=== PATIENT | male | born 1965 | race American Indian/Alaskan Native ===

== ENCOUNTER 2021-02-21 | Emergency (ER) | payer MEDICAID ==
--- NOTE | 2021-02-21 00:26 | Emergency Department Report ---
HPI <KIM SINCLAIR - Last Filed: 02/21/21 12:58> - HPI HPI: This is a 55-year-old -[place] male presents to the emergency department with complaint of left hip pain. Patient says that he was walking towards his truck at home, earlier in the evening, and "my hip gave out." Patient had a fall because of this, but says that he was able to get up and he got into his truck. He began to have increased pain and spent about 2 hours in his truck not knowing what to do. He says that his phone had and therefore he was unable to call for an ambulance. Eventually he decided to drive himself to the emergency department. Once he got here he attempted to get him through the outpatient doors, which are closed for the evening. Due to his hip pain he was unable to go any further and was found by security laying down by the outpatient doors. We were able to get a gurney and transfer the patient into the emergency department. He is awake, alert, oriented. He has a past medical history of hypertension, previous LA, and has a history of left hip replacement surgery. He says that the hardware in the left hip is "coming apart" and he is due to have surgery next month through [facility]. <STANLEY ARTHUR S - Last Filed: 02/21/21 21:06> - General Time Seen by Provider: 02/21/21 00:20 ED Past Medical Hx <KIM SINCLAIR C - Last Filed: 02/21/21 12:58> <STANLEY ARTHUR S - Last Filed: 02/21/21 21:06> - Medications Home Medications: Home Medications Medication Instructions Recorded Confirmed Last Taken Type HYDROcodone/APAP 5-325 [Mohall 1 each PO Q6HR PRN #10 tablet 02/21/21 Unknown Rx 5/325] ED Review of Systems ROS: Stated complaint: LEFT HIP PAIN Other details as noted in HPI <KIM SINCLAIR - Last Filed: 02/21/21 12:58> ROS: Stated complaint: LEFT HIP PAIN Other details as noted in HPI Comment: All other systems reviewed and negative Constitutional: denies: chills, fever Eyes: denies: eye pain, vision change ENT: denies: ear pain, throat pain Respiratory: denies: cough, shortness of breath Cardiovascular: denies: chest pain, palpitations Gastrointestinal: denies: abdominal pain, vomiting Genitourinary: denies: dysuria, discharge Musculoskeletal: arthralgia. denies: back pain Skin: denies: rash, lesions Neurological: denies: headache, weakness, numbness, paresthesias <STANLEY ARTHUR S - Last Filed: 02/21/21 21:06> Physical Exam - Physical Exam Vital Signs: Vital Signs 02/21/21 02/21/21 02/21/21 00:44 00:58 01:00 Temperature Pulse Rate 93 H 85 86 Respiratory 14 22 Rate Blood Pressure Blood Pressure [Left] O2 Sat by Pulse 95 93 Oximetry 02/21/21 02/21/21 02/21/21 01:14 01:15 01:30 Temperature Pulse Rate 85 82 Respiratory 18 22 19 Rate Blood Pressure 149/74 Blood Pressure [Left] O2 Sat by Pulse 94 90 Oximetry 02/21/21 02/21/21 02/21/21 01:34 01:44 01:45 Temperature 97.9 F Pulse Rate 92 H 80 Respiratory 20 18 20 Rate Blood Pressure 155/68 Blood Pressure 149/74 [Left] O2 Sat by Pulse 96 Oximetry 02/21/21 02/21/21 02/21/21 02:01 02:15 02:31 Temperature Pulse Rate 79 82 84 Respiratory 18 18 16 Rate Blood Pressure 135/80 151/83 129/79 Blood Pressure [Left] O2 Sat by Pulse Oximetry 02/21/21 02/21/21 02/21/21 02:45 03:01 03:15 Temperature Pulse Rate 82 83 83 Respiratory 21 19 19 Rate Blood Pressure 135/82 152/81 145/72 Blood Pressure [Left] O2 Sat by Pulse 92 91 Oximetry 02/21/21 02/21/21 02/21/21 03:31 03:45 04:01 Temperature Pulse Rate 82 86 84 Respiratory 18 17 16 Rate Blood Pressure 144/76 151/88 159/97 Blood Pressure [Left] O2 Sat by Pulse 93 87 92 Oximetry 02/21/21 02/21/21 02/21/21 04:15 04:31 04:45 Temperature Pulse Rate 84 88 86 Respiratory 17 17 16 Rate Blood Pressure 167/92 148/82 143/73 Blood Pressure [Left] O2 Sat by Pulse 91 91 Oximetry 02/21/21 02/21/21 02/21/21 05:01 05:15 05:31 Temperature Pulse Rate 85 90 83 Respiratory 18 16 17 Rate Blood Pressure 148/82 132/79 138/90 Blood Pressure [Left] O2 Sat by Pulse 94 95 94 Oximetry 02/21/21 02/21/21 05:45 06:01 Temperature Pulse Rate 86 83 Respiratory 16 18 Rate Blood Pressure 134/83 152/96 Blood Pressure [Left] O2 Sat by Pulse 93 93 Oximetry <KIM SINCLAIR - Last Filed: 02/21/21 12:58> - Physical Exam Physical Exam: GENERAL: The patient is well-developed well-nourished. HENT: Normocephalic. Atraumatic. Patient has moist mucous membranes. EYES: Extraocular motions are intact. NECK: Supple. Trachea is midline. CHEST/LUNGS: Clear to auscultation. There is no respiratory distress noted. HEART/CARDIOVASCULAR: Regular. There is no tachycardia. There is no murmur. ABDOMEN: Abdomen is soft, nontender. Patient has normal bowel sounds. Obese habitus. SKIN: Skin is warm and dry. NEURO: The patient is awake, alert, and oriented. The patient is cooperative. The patient has no focal neurologic deficits. Normal speech. MUSCULOSKELETAL: There is tenderness to palpation to the left hip. <STANLEY ARTHUR S - Last Filed: 02/21/21 21:06> ED Course Vital Signs 02/21/21 02/21/21 02/21/21 00:44 00:58 01:00 Temperature Pulse Rate 93 H 85 86 Respiratory 14 22 Rate Blood Pressure Blood Pressure [Left] O2 Sat by Pulse 95 93 Oximetry 02/21/21 02/21/21 02/21/21 01:14 01:15 01:30 Temperature Pulse Rate 85 82 Respiratory 18 22 19 Rate Blood Pressure 149/74 Blood Pressure [Left] O2 Sat by Pulse 94 90 Oximetry 02/21/21 02/21/21 02/21/21 01:34 01:44 01:45 Temperature 97.9 F Pulse Rate 92 H 80 Respiratory 20 18 20 Rate Blood Pressure 155/68 Blood Pressure 149/74 [Left] O2 Sat by Pulse 96 Oximetry 02/21/21 02/21/21 02/21/21 02:01 02:15 02:31 Temperature Pulse Rate 79 82 84 Respiratory 18 18 16 Rate Blood Pressure 135/80 151/83 129/79 Blood Pressure [Left] O2 Sat by Pulse Oximetry 02/21/21 02/21/21 02/21/21 02:45 03:01 03:15 Temperature Pulse Rate 82 83 83 Respiratory 21 19 19 Rate Blood Pressure 135/82 152/81 145/72 Blood Pressure [Left] O2 Sat by Pulse 92 91 Oximetry 02/21/21 02/21/21 02/21/21 03:31 03:45 04:01 Temperature Pulse Rate 82 86 84 Respiratory 18 17 16 Rate Blood Pressure 144/76 151/88 159/97 Blood Pressure [Left] O2 Sat by Pulse 93 87 92 Oximetry 02/21/21 02/21/21 02/21/21 04:15 04:31 04:45 Temperature Pulse Rate 84 88 86 Respiratory 17 17 16 Rate Blood Pressure 167/92 148/82 143/73 Blood Pressure [Left] O2 Sat by Pulse 91 91 Oximetry 02/21/21 02/21/21 02/21/21 05:01 05:15 05:31 Temperature Pulse Rate 85 90 83 Respiratory 18 16 17 Rate Blood Pressure 148/82 132/79 138/90 Blood Pressure [Left] O2 Sat by Pulse 94 95 94 Oximetry 02/21/21 02/21/21 05:45 06:01 Temperature Pulse Rate 86 83 Respiratory 16 18 Rate Blood Pressure 134/83 152/96 Blood Pressure [Left] O2 Sat by Pulse 93 93 Oximetry - Reevaluation(s) Reevaluation #1: 02/21/21 12:58 Patient now alert after sleeping in the ED for several hours. Last dose of pain medication and sedatives around 1 AM. Patient will be discharged to drive home <KIM SINCLAIR - Last Filed: 02/21/21 12:58> ED Medical Decision Making - Lab Data Result diagrams: 02/21/21 00:44 02/21/21 00:44 <KIM SINCLAIR - Last Filed: 02/21/21 12:58> - Lab Data Result diagrams: 02/21/21 00:44 02/21/21 00:44 - Radiology Data Radiology results: image reviewed interpreted by me: X-ray of the left hip shows a prosthetic in place without any acute fracture, dislocation, or any acute process. - Medical Decision Making This patient presents to the emergency department with left hip pain that "locked up" a few hours prior to presentation causing him to have a fall. He later drove himself in to be seen but could not quite make it into the emergency department secondary to the pain and what appears to be spasms. On examination there is reproducible tenderness to palpation. The patient also does appear to be having intermittent spasms of pain to that left hip. X-ray of the left hip does not show any fracture, dislocation, or any acute process. Patient's labs have been unremarkable including CBC, metabolic panel and magnesium level. He was given pain medication and a muscle relaxer with improvement of his discomfort. The patient will remain in the emergency department on the monitor after receiving this analgesia as the patient drove himself in to be seen, and also appears to have sleep apnea. Eventually the patient will be discharged home to follow-up with his orthopedic surgeon and will be placed on crutches for support. <STANLEY ARTHUR S - Last Filed: 02/21/21 21:06> Critical care attestation.: If time is entered above; I have spent that time in minutes in the direct care of this critically ill patient, excluding procedure time. <KIM SINCLAIR - Last Filed: 02/21/21 12:58> Critical Care Time: No Critical care attestation.: If time is entered above; I have spent that time in minutes in the direct care of this critically ill patient, excluding procedure time. <STANLEY ARTHUR S - Last Filed: 02/21/21 21:06> ED Disposition <KIM SINCLAIR - Last Filed: 02/21/21 12:58> Is pt being admited?: No <STANLEY ARTHUR S - Last Filed: 02/21/21 21:06> Clinical Impression: Left hip pain, Fall, Muscle spasm Disposition: HOME / SELF CARE / HOMELESS Condition: Stable Instructions: Hip Pain, Muscle Cramps and Spasms Additional Instructions: Please follow-up with your orthopedist in the next few days. Use the crutches as needed for support of your left hip pain. You have been prescribed a medication that is sedating and therefore should not be taken prior to driving, working, and responsible for children and in no way should be mixed with alcohol of any quantity. Return to the emergency department with any worsening of your symptoms, new or concerning symptoms not addressed during this current emergency department visit, or with any acute distress. Prescriptions: HYDROcodone/APAP 5-325 [Mohall 5/325] 1 each PO Q6HR PRN #10 tablet PRN Reason: Pain Referrals: Orthopedist, Your [Other] - 2-3 Days
[2021-02-21 01:05] LABS: Basophils # (Auto) 0.1 K/mm3 (0.0-0.1); Eosinophils # (Auto) 0.1 K/mm3 (0.0-0.4); Eosinophils % (Auto) 1.7 % (0.0-4.3); Hematocrit 40.5 % (35.5-45.6); Hemoglobin 14.5 gm/dl (11.8-15.2); Lymphocytes # (Auto) 2.1 K/mm3 (1.2-5.4); Mean Corpuscular HGB Conc 36 % (32-34); Mean Corpuscular Volume 98 fl (84-94); Monocytes # (Auto) 0.8 K/mm3 (0.0-0.8); Monocytes % (Auto) 10.3 % (0.0-7.3); Platelet Count 169 K/mm3 (140-440); Red Blood Count 4.14 M/mm3 (3.65-5.03); Red Cell Distribution Width 14.1 % (13.2-15.2)
[2021-02-21] MEDS ORDERED: CYCLOBENZAPRINE 10 MG TAB PO ONE (01:13)
[2021-02-21] MEDS ORDERED: MORPHINE 4 MG/1 ML INJ IV ONE (01:21)
--- NOTE | 2021-02-21 01:23 | XRay Report ---
XR hip 2-3V LT INDICATION / CLINICAL INFORMATION: left hip pain COMPARISON: None available. FINDINGS/IMPRESSION: Left total hip arthroplasty projects in expected position. There is no hardware complication or acute fracture. No focal soft tissue abnormality. Signer Name: Tima Ambrosio MD Signed: 02/21/2021 1:19 AM Workstation Name: [id number]
[2021-02-21 01:26] LABS: BUN/Creatinine Ratio 14; Blood Urea Nitrogen 11 mg/dL (9-20); Calcium 8.6 mg/dL (8.4-10.2); Hemolysis Index 4
[2021-02-21 13:37] VITALS: BP 141/89
== END 2021-02-21 13:38 | disposition home or self-care (01) ==
LOC: ED
DX: M62.838 Other muscle spasm (principal); M25.552 Pain in left hip; W19.XXXA Unspecified fall, initial encounter; Y93.89 Activity, other specified; Y92.89 Other specified places as the place of occurrence of the external cause; Y99.8 Other external cause status
CPT/HCPCS: 36415; 73502; 80048; 83735; 85025; 96374; 99284; J2270